=== PATIENT | male | born 2000 | race American Indian/Alaskan Native ===

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

== ENCOUNTER 2018-09-21 08:50 | Emergency (ER) | payer MEDICAID, OTHER ==
[2018-09-21 09:28] LABS: Basophils % (Auto) 0.3 % (0.0-1.8); Eosinophils # (Auto) 0.1 K/mm3 (0.0-0.4); Eosinophils % (Auto) 1.2 % (0.0-4.3); Hematocrit 47.6 % (35.5-45.6); Hemoglobin 16.2 gm/dl (11.8-15.2); Lymphocytes # (Auto) 0.6 K/mm3 (1.2-5.4); Lymphocytes % (Auto) 7.7 % (13.4-35.0); Mean Corpuscular HGB Conc 34 % (32-34); Mean Corpuscular Volume 92 fl (84-94); Monocytes # (Auto) 0.6 K/mm3 (0.0-0.8); Platelet Count 360 K/mm3 (140-440); Red Blood Count 5.15 M/mm3 (3.65-5.03); Red Cell Distribution Width 13.7 % (13.2-15.2)
[2018-09-21 09:51] LABS: Alanine Aminotransferase 15 units/L (7-56); Albumin 4.8 g/dL (3.9-5); BUN/Creatinine Ratio 14; Blood Urea Nitrogen 14 mg/dL (9-20); Calcium 9.4 mg/dL (8.4-10.2); Hemolysis Index 13
[2018-09-21 10:47] LABS: Bilirubin,Urine NEG (Negative); Blood,Urine NEG (Negative); Color,Urine Yellow (Yellow); Mucus,Urine FEW /HPF; Protein,Urine <15 mg/dL mg/dL (Negative); Urobilinogen,Urine < 2.0 mg/dL (<2.0)
--- NOTE | 2018-09-21 10:52 | Emergency Department Report ---
ED General Adult HPI - General Chief complaint: Nausea/Vomiting/Diarrhea Stated complaint: BACK/CHEST PAIN/VOMITTING Time Seen by Provider: 09/21/18 10:24 Source: patient Mode of arrival: Ambulatory Limitations: No Limitations - History of Present Illness Initial comments: Kisha is a 17 healthy male with hx of asthma presents with mild right-sided chest pain yesterday. Radiates to the back. Pain is worse with inspiration and movement. Pain is now resolved. This morning he developed headache vomiting diarrhea. Denies fever. Denies chills. Mild malaise. No shortness of breath. -: Gradual, days(s) (2) Location: chest Severity scale (0 -10): 10 Quality: stabbing, aching Consistency: now resolved Improves with: none Worsens with: none Associated Symptoms: malaise, nausea/vomiting - Related Data Previous Rx's Medication Instructions Recorded Last Taken Type Dicyclomine [Bentyl] 10 mg PO QID PRN #20 capsule 09/05/16 Unknown Rx Famotidine [Pepcid] 20 mg PO QDAY #30 tablet 09/05/16 Unknown Rx Ondansetron [Zofran Odt] 4 mg PO QID PRN #20 tab.rapdis 09/05/16 Unknown Rx Doxycycline [Vibramycin CAP] 100 mg PO Q12HR #20 capsule 12/01/17 Unknown Rx Promethazine [Phenergan TAB] 25 mg PO Q8HR PRN #10 tab 09/21/18 Unknown Rx predniSONE [Deltasone] 3 tab PO QDAY 5 Days #15 tab 09/21/18 Unknown Rx Allergies Allergy/AdvReac Type Severity Reaction Status Date / Time No Known Allergies Allergy Verified 09/21/18 08:56 ED Review of Systems ROS: Stated complaint: BACK/CHEST PAIN/VOMITTING Other details as noted in HPI Comment: All other systems reviewed and negative Constitutional: denies: fever, malaise Respiratory: denies: cough Cardiovascular: chest pain Gastrointestinal: nausea, vomiting, diarrhea ED Past Medical Hx - Past Medical History Previous Medical History?: Yes Hx Asthma: Yes - Surgical History Past Surgical History?: No - Social History Smoking Status: Current Every Day Smoker Substance Use Type: None - Medications Home Medications: Home Medications Medication Instructions Recorded Confirmed Last Taken Type Dicyclomine [Bentyl] 10 mg PO QID PRN #20 capsule 09/05/16 Unknown Rx Famotidine [Pepcid] 20 mg PO QDAY #30 tablet 09/05/16 Unknown Rx Ondansetron [Zofran Odt] 4 mg PO QID PRN #20 tab.rapdis 09/05/16 Unknown Rx Doxycycline [Vibramycin CAP] 100 mg PO Q12HR #20 capsule 12/01/17 Unknown Rx Promethazine [Phenergan TAB] 25 mg PO Q8HR PRN #10 tab 09/21/18 Unknown Rx predniSONE [Deltasone] 3 tab PO QDAY 5 Days #15 tab 09/21/18 Unknown Rx ED Physical Exam - General Limitations: No Limitations General appearance: alert, in no apparent distress - Head Head exam: Present: atraumatic, normocephalic - Eye Eye exam: Present: normal appearance - ENT ENT exam: Present: mucous membranes moist - Neck Neck exam: Present: normal inspection, full ROM - Respiratory Respiratory exam: Present: normal lung sounds bilaterally. Absent: respiratory distress, wheezes, rales, rhonchi - Cardiovascular Cardiovascular Exam: Present: regular rate, normal rhythm, normal heart sounds. Absent: systolic murmur, diastolic murmur, rubs, gallop - GI/Abdominal GI/Abdominal exam: Present: soft, normal bowel sounds. Absent: distended, tenderness - Rectal Rectal exam: Present: deferred - Extremities Exam Extremities exam: Present: normal inspection - Back Exam Back exam: Present: normal inspection - Neurological Exam Neurological exam: Present: alert, oriented X3 - Psychiatric Psychiatric exam: Present: normal affect, normal mood - Skin Skin exam: Present: warm, dry, intact, normal color. Absent: rash ED Course Vital Signs 09/21/18 08:56 Temperature 97.6 F Pulse Rate 65 Respiratory 16 Rate Blood Pressure 144/78 O2 Sat by Pulse 100 Oximetry ED Medical Decision Making - Lab Data Result diagrams: 09/21/18 09:08 09/21/18 09:08 Laboratory Results - last 24 hr 09/21/18 09/21/18 09/21/18 09:08 09:08 10:35 WBC 8.2 RBC 5.15 H Hgb 16.2 H Hct 47.6 H MCV 92 MCH 31 MCHC 34 RDW 13.7 Plt Count 360 Lymph % (Auto) 7.7 L Levy % (Auto) 7.0 Eos % (Auto) 1.2 Baso % (Auto) 0.3 Lymph # 0.6 L Levy # 0.6 Eos # 0.1 Baso # 0.0 Seg Neutrophils % 83.8 H Seg Neutrophils # 6.9 Sodium 138 Potassium 4.8 Chloride 101.7 Carbon Dioxide 27 Anion Gap 14 BUN 14 Creatinine 1.0 Estimated GFR > 60 BUN/Creatinine Ratio 14 Glucose 103 H Calcium 9.4 Total Bilirubin 0.40 AST 17 ALT 15 Alkaline Phosphatase 59 Total Protein 8.6 H Albumin 4.8 Albumin/Globulin Ratio 1.3 Urine Bilirubin Neg Urine RBC (Auto) 2.0 - Medical Decision Making Kisha presents with chest pain, vomiting and diarrhea. Suspect bronchospasm due to asthma causing chest pain. No indication of PE, PTX, PNA. CXR PA lateral normal. viral syndrome suspected Rx: Prednisone, promethazine Critical care attestation.: If time is entered above; I have spent that time in minutes in the direct care of this critically ill patient, excluding procedure time. ED Disposition Clinical Impression: Bronchospasm, acute, Chest pain, Viral gastroenteritis Disposition: TO HOME OR SELFCARE Is pt being admited?: No Does the pt Need Aspirin: No Condition: Stable Instructions: Chest Pain (ED), Gastroenteritis (ED) Prescriptions: predniSONE [Deltasone] 3 tab PO QDAY 5 Days #15 tab Promethazine [Phenergan TAB] 25 mg PO Q8HR PRN #10 tab PRN Reason: Nausea Referrals: PRATEEK HERRERA MD [Primary Care Provider] - 3-5 Days [facility] [Outside] - 3-5 Days Forms: Work/School Release Form(ED)
--- NOTE | 2018-09-21 11:10 | XRay Report ---
PROCEDURE: XR CHEST ROUTINE 2V TECHNIQUE: PA and lateral chest HISTORY: right sided chest pain COMPARISONS: None FINDINGS: Trachea midline. Heart size normal. Mediastinal contour unremarkable. No pneumothorax. No effusion. Lungs are clear No acute bony abnormality. IMPRESSION: Normal for age. This document is electronically signed by Shivam Rosenbaum MD., September 21 2018 11:08:28 AM ET
[2018-09-21 12:29] VITALS: BP 132/76
== END 2018-09-21 11:47 | disposition home or self-care (01) ==
LOC: ED 08:50
DX: J98.01 Acute bronchospasm (principal); A08.4 Viral intestinal infection, unspecified; F17.200 Nicotine dependence, unspecified, uncomplicated
CPT/HCPCS: 36415; 71046; 80053; 81001; 85025